=== PATIENT | female | born 1985 | race Caucasian/White ===

== ENCOUNTER 2017-04-11 12:12 | Inpatient (IN) | payer OTHER ==
[~2017-04-11] VITALS: Ht 180.3 cm; Wt 82.6 kg
[~2017-04-11 12:12] MED LIST: PRENATAL ONE D1 EACH
[2017-04-11] MEDS ORDERED: BENADRYL25 MG PO (14:35)
== END 2017-04-15 09:56 | DRG 778 ==
LOC: LDR 12:12 → OB/GYN 04-12 09:46
PROC: 4A1HXCZ Monitoring of Products of Conception, Cardiac Rate, External Approach (ICD-10-PCS; principal; 2017-04-11)
DX: O60.03 Preterm labor without delivery, third trimester (principal); Z3A.33 33 weeks gestation of pregnancy

== ENCOUNTER 2017-05-09 08:26 | Outpatient (CLI) | payer OTHER ==
[~2017-05-09 08:26] MED LIST changes: +BENADRYL25 MG PO
== END 2017-05-09 08:56 | disposition home or self-care (01) ==
LOC: NST 08:26
DX: Z34.83 Encounter for supervision of other normal pregnancy, third trimester (principal)

== ENCOUNTER 2017-05-16 09:45 | Inpatient (IN) | payer OTHER ==
[~2017-05-16] VITALS: Ht 180.3 cm; Wt 190.0 kg
== END 2017-05-25 12:54 | DRG 775 ==
LOC: LDR 05-23 07:45 → OB/GYN 05-23 16:04
PROC: 0UQGXZZ Repair Vagina, External Approach (ICD-10-PCS; principal; 2017-05-23)
PROC: 4A0HXCZ Measurement of Products of Conception, Cardiac Rate, External Approach (ICD-10-PCS; 2017-05-23)
PROC: 10E0XZZ Delivery of Products of Conception, External Approach (ICD-10-PCS; 2017-05-23)
PROC: 4A033R1 Measurement of Arterial Saturation, Peripheral, Percutaneous Approach (ICD-10-PCS; 2017-05-23)
DX: O71.4 Obstetric high vaginal laceration alone (principal); O42.92 Full-term premature rupture of membranes, unspecified as to length of time between rupture and onset of labor; Z3A.38 38 weeks gestation of pregnancy; Z37.0 Single live birth